=== PATIENT | male | born 1955 | race Caucasian/White ===

== ENCOUNTER 2018-12-26 06:31 | Day surgery (SDC) | payer BC ==
[2018-12-24 17:31] VITALS: BMI 23.1
[~2018-12-26] VITALS: Ht 185.4 cm; Wt 78.0 kg
[2018-12-26] VITALS (13 sets, daily range): BP systolic 96–120; BP diastolic 54–79; PULSE 67–86; RESP 16–18; Ht 185.4 cm; Wt 78.0 kg
[~2018-12-26 06:31] MED LIST: BUPIVACAINE 0.25% (STERILE-PAK) 30 ML INJ INJ ONE
[2018-12-26] MEDS ORDERED: BUPIVACAINE 0.25% (MPF) 30 ML INJ ONE ×2 (07:14→09:02)
[2018-12-26] MEDS ORDERED: CEFAZOLIN 2 GM/50 ML (PMX) 50 ML IVPB ONE (07:30)
[2018-12-26] MEDS ORDERED: SOD CHLORIDE 0.9% 1,000 ML IV SCH (07:30)
[2018-12-26] MEDS ORDERED: MEPERIDINE 25 MG INJ IV PRN (08:30)
[2018-12-26] MEDS ORDERED: FENTAnyl 50 MCG/ML VIAL IV PRN ×3 (08:30)
[2018-12-26] MEDS ORDERED: LABETALOL HCL 20MG INJ IV PRN (08:30)
[2018-12-26] MEDS ORDERED: hydrALAzine 20 MG INJ IV PRN (08:30)
[2018-12-26] MEDS ORDERED: ONDANSETRON 4 MG INJ IV PRN (08:30)
[2018-12-26] MEDS ORDERED: OXYCODONE/ACETAMINOPHEN (5/325) TAB PO PRN ×2 (08:30)
[2018-12-26] MEDS ORDERED: MIDAZOLAM 1 MG/ML 2 ML INJ ONE (09:11)
[2018-12-26] MEDS ORDERED: FENTAnyl 50 MCG/ML VIAL ONE (09:11)
[2018-12-26] MEDS ORDERED: CEFAZOLIN 1 GM INJ ONE (09:12)
[2018-12-26] MEDS ORDERED: PROPOFOL 20 ML ONE (09:12)
[2018-12-26] MEDS ORDERED: LIDOCAINE 2% (SDV) 5 ML INJ ONE (09:12)
[2018-12-26] MEDS ORDERED: SUCCINYLCHOLINE CHLORIDE 100 MG/5 ML SYG IV ONE (09:12)
[2018-12-26] MEDS ORDERED: DEXAMETHASONE 4 MG/ML 5 ML INJ ONE (09:53)
[2018-12-26] MEDS ORDERED: ONDANSETRON 4 MG INJ ONE (09:53)
[2018-12-26] MEDS ORDERED: FAMOTIDINE 20 MG INJ ONE (09:55)
[2018-12-26] MEDS ORDERED: BUPIVACAINE 0.25% (STERILE-PAK) 30 ML INJ INJ ONE (10:08)
[2018-12-26] MEDS ORDERED: traMADol 50 MG TAB PO ONE (10:30)
== END 2018-12-26 12:20 | disposition home or self-care (01) ==
LOC: SDS 06:31
PROVIDERS: ATTEND Surgery
DX: D17.1 Benign lipomatous neoplasm of skin and subcutaneous tissue of trunk (principal); F17.200 Nicotine dependence, unspecified, uncomplicated
CPT/HCPCS: 14301; 88307; J0690; J1100; J2250; J2405; J3010; Z7512; Z7610